=== PATIENT | female | born 1995 | race Caucasian/White ===

== ENCOUNTER 2017-08-08 01:44 | Emergency (ER) | payer OTHER ==
[~2017-08-08] VITALS: Ht 152.4 cm; Wt 52.5 kg
[2017-08-08 01:56] VITALS: Ht 152.4 cm; Wt 52.5 kg
--- NOTE | 2017-08-08 02:27 | ERD ---
ER Documentation Chief Complaint Chief Complaint sp ground level fall, forehead laceration,no loc, + etoh breath HPI The patient is a 22-year-old female, presenting to the ER because of acute mechanical fall from the bar. She has been drinking. She is intoxicated, the history is limited and obtained from the boyfriend. She denies chest pain abdominal pain or vomiting Past medical/surgical history: None ROS All systems reviewed and are negative except as per history of present illness. Allergies Allergies: Coded Allergies: No Known Allergy (Unverified , 08/08/17) Physical Exam Vitals Vital Signs Date Time Temp Pulse Resp B/P Pulse Ox O2 Delivery O2 Flow Rate FiO2 08/08/17 05:20 98.6 80 16 99/69 99 Room Air 08/08/17 03:35 72 16 91/59 98 Room Air 08/08/17 01:56 97.8 68 20 115/68 98 Physical Exam Const: No acute distress. Head: Atraumatic. Eyes: Normal Conjunctiva. 2 cm forehead laceration ENT: Normal External Ears, Nose and Mouth. Neck: Full range of motion. No meningismus. Resp: Clear to auscultation bilaterally. Cardio: Regular rate and rhythm. Abd: Soft, non distended, normal bowel sounds, non tender. Skin: No petechiae or rashes. Back: No midline or flank tenderness. Ext: No cyanosis, or edema. Neur: Awake and alert. No focal deficit Psych: Normal Mood and Affect. Results 24 hrs Current Medications Medications (Trade) Dose Ordered Sig/Rosie Route PRN Reason Start Time Stop Time Status Last Admin Dose Admin Diphtheria/ Tetanus/Acell Pertussis (Adacel) 0.5 ml ONCE ONCE IM* 08/08/17 03:00 08/08/17 03:01 DC 08/08/17 05:09 Lidocaine/ Epinephrine (Xylocaine 1%/ Epi (Pf)) 30 ml ONCE STAT INJ 08/08/17 04:41 08/08/17 04:42 DC 08/08/17 05:10 Lidocaine HCl (Lidocaine 1% (Mdv) 10 ml) 10 ml STK-MED ONCE .ROUTE 08/08/17 04:43 08/08/17 04:44 DC Procedures/[place] [id number] Radiology Main Line: [phone] DIAGNOSTIC IMAGING REPORT Patient: JEROME FINCH : 1995 Age: 22 Sex: F MR #: [id number] DOS: 08/08/17236 Ordering MD: CHANDNI GONZALEZ MD Location: E/R Room/Bed: PROCEDURE: CT Cervical Spine. CLINICAL INDICATION: Fall, neck pain TECHNIQUE: A CT of the cervical spine was performed utilizing thin section axial images from the skull base through the thoracic inlet. Sagittal and coronal reformatted images were made. The CTDIvol is 22.1 mGy and the DLP is 419.67 mGycm. One or more the following dose reduction techniques were utilized: Automated exposure control, adjustment of the mA and / or kV according to patient's size, or use of iterative reconstruction technique. DICOM images are available. COMPARISON: None. FINDINGS: There is minimal reversal of the normal cervical lordosis. No vertebral body subluxation is seen. No fractures are evident. The posterior elements are normally aligned. The surrounding soft tissues are normal in appearance. The intervertebral discs are normal in height. No significant disk bulge or protrusion is seen. The central canal and foramina are adequately patent at all levels. IMPRESSION: Minimal reversal of the normal cervical lordosis which could be secondary to positioning or muscle spasm. No acute fracture or dislocation seen. RPTAT: HJES .Gene Hart MD, MD Date Time Electronically viewed and signed by .Gene Hart MD, MD on 08/08/2017 04:03 .S/ CC: CHANDNI GONZALEZ MD [place] [id number] Radiology Main Line: [phone] DIAGNOSTIC IMAGING REPORT Patient: JEROME FINCH : 1995 Age: 22 Sex: F MR #: [id number] DOS: 08/08/17236 Ordering MD: CHANDNI GONZALEZ MD Location: E/R Room/Bed: PROCEDURE: CT brain without contrast. CLINICAL INDICATION: Injury and pain, EtOH. TECHNIQUE: CT scan of the brain was performed on a multi-detector high- resolution CT scanner. Contiguous axial images were obtained from the skull base to the vertex without intravenous contrast. Coronal and sagittal reformatted images were also obtained. Images were reviewed on the PACS workstation. DICOM images are available. One or more of the following dose reduction techniques were used: - Automated exposure control. - Adjustment of the mA and/or kV according to patient size. - Use of iterative reconstruction technique. Exam CTD/vol = 45.01 mGy. Total exam DLP = 720.23 mGy-cm. COMPARISON: None. FINDINGS: The ventricles and cortical sulci are within normal limits for patient's age. There are no areas of abnormal attenuation within the brain parenchyma. There is no mass effect or midline shift. There is no intracranial hemorrhage or abnormal extra-axial collection. There is left frontal scalp laceration and soft tissue swelling. The calvarium is intact. There is no evidence of fracture. Visualized paranasal sinuses and mastoid air cells are clear. IMPRESSION: No acute intracranial abnormality identified. Left frontal scalp laceration and soft tissue swelling. .Curtis Hanks MD, Date Time Electronically viewed and signed by .Curtis Hanks MD, on 08/08/2017 04:00 .T/ CC: CHANDNI GONZALEZ MD MEDICAL MAKING DECISION: The patient is a 22-year-old female, presenting with acute facial laceration, alcohol abuse The differential diagnoses considered include but are not limited to intracranial pathology, fracture, contusion, concussion Laceration Repair by me: Anesthesia: 1% lidocaine locally Location: forehead Tendon/Joint/Nerves: No injury Foreign body: None detected after copious irrigation and exploration Technique: Simple Interrupted Sutures Ethilon 5 Complexity: No subcutaneous sutures/mucosal repair/ edge excision Post Closure Length: 2 cm Patient's bleeding was easily controlled in the department and there is no indication of anemia. No evidence of compartment syndrome, neurologic injury, vascular injury, open joint, tendon laceration, or foreign body. Patient is appropriate for outpatient follow up. 48 hour wound check. Scar minimization instructions given. Departure Diagnosis: Primary Impression: Facial laceration Condition: Good Comments I discussed the findings with the patient. I advised the patient to return in 2 days for wound check, 5 days for suture removal, sooner if needed and return if any concern. Disclaimer: Inadvertent spelling and grammatical errors are likely due to EHR/ dictation software use and do not reflect on the overall quality of patient care. Also, please note that the electronic time recorded on this note does not necessarily reflect the actual time of the patient encounter. CHANDNI GONZALEZ MD Aug 08, 2017 02:27
[2017-08-08] MEDS ORDERED: DIPHTH/TET/ACEL PERTUSS (ADULT) 0.5 ML VIAL IM* ONE (03:00)
--- NOTE | 2017-08-08 04:00 | RADRPT ---
PROCEDURE: CT brain without contrast. CLINICAL INDICATION: Injury and pain, EtOH. TECHNIQUE: CT scan of the brain was performed on a multi-detector high-resolution CT scanner. Co ntiguous axial images were obtained from the skull base to the vertex without intravenous contrast. Coronal and sagittal reformatted images were also obtained. Images were reviewed on the PACS works [employer]. DICOM images are available. One or more of the following dose reduction techniques were used: - Automated exposure control. - Adjustment of the mA and/or kV according to patient size. - Use of iterative reconstruction technique. Exam CTD/vol = 45.01 mGy. Total exam DLP = 720.23 mGy-cm. COMPARISON: None. FINDINGS: The ventricles and cortical sulci are within normal limits for patient's age. There are no areas of abnormal attenuation within the brain parenchyma. There is no mass effect or midline shift. There is no intracranial hemorrhage or abnormal extra-axial collection. There is left frontal scalp laceration and soft tissue swelling. The calvarium is intact. There is n o evidence of fracture. Visualized paranasal sinuses and mastoid air cells are clear. IMPRESSION: No acute intracranial abnormality identified. Left frontal scalp laceration and soft tissue swelling. .Curtis Hanks MD, MD Date Time Electronically viewed and signed by .Curtis Hanks MD, on 08/08/2017 04:00 .T/
--- NOTE | 2017-08-08 04:04 | RADRPT ---
PROCEDURE: CT Cervical Spine. CLINICAL INDICATION: Fall, neck pain TECHNIQUE: A CT of the cervical spine was performed utilizing thin section axial images from the skull base through the thoracic inlet. Sagittal and coronal reformatted images were made. The CTDI vol is 22.1 mGy and the DLP is 419.67 mGycm. One or more the following dose reduction techniques were utilized: Automated exposure control, adjus tment of the mA and / or kV according to patient's size, or use of iterative reconstruction techniqu e. DICOM images are available. COMPARISON: None. FINDINGS: There is minimal reversal of the normal cervical lordosis. No vertebral body subluxation is seen. N o fractures are evident. The posterior elements are normally aligned. The surrounding soft tissues are normal in appearance. The intervertebral discs are normal in height. No significant disk bulg e or protrusion is seen. The central canal and foramina are adequately patent at all levels. IMPRESSION: Minimal reversal of the normal cervical lordosis which could be secondary to positioning or muscle s pasm. No acute fracture or dislocation seen. RPTAT: HJES .Gene Hart MD, MD Date Time Electronically viewed and signed by .Gene Hart MD, on 08/08/2017 04:03 .S/
[2017-08-08] MEDS ORDERED: LIDOCAINE 1% (MDV) 10 ML INJ ONE (04:43)
[2017-08-08] MEDS: LIDOCAINE 1%/EPI 30 ML INJ INJ STA (05:10)
[2017-08-08 05:20] VITALS: BP 99/69; PULSE 80; RESP 16; TEMP 98.6
== END 2017-08-08 05:35 | disposition home or self-care (01) ==
LOC: E/R 01:44
DX: S01.81XA Laceration without foreign body of other part of head, initial encounter (principal); W18.39XA Other fall on same level, initial encounter; Y92.9 Unspecified place or not applicable; Z23 Encounter for immunization
CPT/HCPCS: 70450; 72125; 90471; 90715

== ENCOUNTER 2017-08-14 18:46 | Emergency (ER) | payer OTHER ==
[~2017-08-14] VITALS: Ht 152.4 cm; Wt 52.7 kg
[2017-08-14 19:00] VITALS: Ht 152.4 cm; Wt 52.7 kg
--- NOTE | 2017-08-14 22:54 | ERD ---
ER Documentation Chief Complaint Chief Complaint suture removal HPI This 22-year-old female presents for suture removal from a laceration sustained 7 days ago to her forehead. She denies any drainage or bleeding from the wound. Believes it is healing well. She has had no fevers or chills or mental status changes. No neurological deficits. Feels well. ROS All systems reviewed and are negative except as per history of present illness. Allergies Allergies: Coded Allergies: No Known Allergy (Unverified , 08/08/17) PMhx/Soc Medical and Surgical Hx: pt denies Medical Hx History of Surgery: Yes (left femur sx) Anesthesia Reaction: No Hx Neurological Disorder: No Hx Respiratory Disorders: No Hx Cardiac Disorders: No Hx Psychiatric Problems: No Hx Miscellaneous Medical Probl: No Hx Alcohol Use: No Hx Substance Use: No Hx Tobacco Use: No Smoking Status: Never smoker Physical Exam Vitals Vital Signs Date Time Temp Pulse Resp B/P Pulse Ox O2 Delivery O2 Flow Rate FiO2 08/14/17 19:00 98.6 58 18 119/72 100 Physical Exam Const: [] No distress Head: No healing vertical laceration to left central forehead with [address] No signs of surrounding infection, no discharge. Mild scabbing. Eyes: Normal Conjunctiva, EOMI, PERRLA ENT: Normal External Ears, Nose and Mouth. Neur: Awake and alert 3, no focal deficits Psych: Normal Mood and Affect Procedures/MDM Simple suture removal. No signs of infection or neurological deficits. Low suspicion for sequelae of traumatic brain injury or concussion. Help with primary care doctor in 2-3 days. Removal note. 3 simple interrupted sutures removed after wiping with alcohol and using a suture removal scissors and forceps. Patient tolerated procedure with no complications. Departure Diagnosis: Primary Impression: Visit for suture removal Condition: Stable Patient Instructions: Suture Removal, No Complication Additional Instructions: Call your primary care doctor TOMORROW for an appointment during the next 2-3 days.See the doctor sooner or return here if your condition worsens before your appointment time. JANEL CARRASCO DO Aug 14, 2017 22:54
== END 2017-08-14 23:02 | disposition home or self-care (01) ==
LOC: FTE 18:46 → E/R 23:02
DX: Z48.02 Encounter for removal of sutures (principal)
CPT/HCPCS: 99281